=== PATIENT | male | born 1950 | race Caucasian/White ===

== ENCOUNTER → 2017-11-06 11:52 | Outpatient (CLI) | payer MEDICARE, OTHER ==
[2011-08-29 07:24] VITALS: BMI 25.1
[~2017-11-06 11:52] MED LIST: GABAPENTIN100 MG PO; PRAVACHOL20 MG PO
[2017-11-20 08:36] VITALS: BMI 24.4
== END | disposition home or self-care (01) ==
LOC: D.US 11:52
DX: M79.605 Pain in left leg (principal)

== ENCOUNTER → 2017-11-13 12:33 | Outpatient (CLI) | payer MEDICARE, OTHER ==
[2011-08-29 07:24] VITALS: BMI 25.1
== END | disposition home or self-care (01) ==
LOC: D.CT 12:33
DX: M79.605 Pain in left leg (principal)

== ENCOUNTER 2017-11-20 06:54 | Outpatient (CLI) | payer MEDICARE, OTHER ==
[~2017-11-20] VITALS: Ht 175.3 cm; Wt 75.0 kg
--- NOTE | ~2017-11-20 | HEMODYNAMI ---
PATIENT:TIM VILLATORO JR MEDICAL RECORD: [id number] : 52 LOCATION:[facility] ADMISSION DATE: 11/20/17 Generatedon:11/20/201711:09 Patient name: TIM VILLATORO Patient #: [id number] SSN: : 1950 Date of study: 11/20/2017 Page: Of Hemodynamic Procedure Report Patient Data Patient Demographics Procedure consent was obtained First Name: TIM Gender: Male Last Name: IRVING Suffix: [facility] Initial: S : 1950 Patient #: [id number] Age: 67 year(s) Race: Unknown Additional ID: [id number] Contact details [address]: [address] [place] [address] State: [place] City: [place] Zip code: [address] Past Medical History Allergies Allergen Reaction Date Comments Reported Demerol 11/20/2017 Admission Admission Data Admission Date: 11/20/2017 Admission Time: 6:54 Procedure Procedure Types Cath Procedure Peripheral Cath Diagnostic Procedure Cath Peripheral Abd/Extremity Extremities Bilat Lower Extremity Procedure Description Procedure Date Procedure Date: 11/20/2017 Procedure Start Time: 9:38 Procedure Staff Name Function Tremayne Harden MD Performing Physician Alyssa Rodriguez RT Monitor Napoleon Beckford RT Scrub Rosanna Alston RN Nurse Alyssa Rodriguez RT Procedures Analyst Procedure Data Cath Procedure Fluoroscopy Diagnostic fluoroscopy Total fluoroscopy Time: time: 10.9 min 10.9 min Diagnostic fluoroscopy Total fluoroscopy dose: 393 dose: 393 mGy mGy Contrast Material Contrast Material Type Amount (ml) Isovue 300 95 Entry Location Entry Primary Successful Side Size Upsize Upsize Entry Closure Succes sful Closure Location (Fr) 1 (Fr) 2 (Fr) Remarks Device Remarks Femoral Right 5 Fr artery Femoral Mynx artery Boat Dock Operator 6Fr/7Fr Diagnostic catheters Device Type Used For End Catheter Placement Merit ULTRA BOLUS FLUSH 5Fr 65CM catheter ([id number]) DIAGNOSTIC IMT 5Fr Catheter ([id number]) Procedure Medications Medication Administration Route Dosage Lidocaine 1% added to field 20 Oxygen NC 3 l/min Heparin Flush Bag 3 bags (1000units/500ml NS) Versed I.V. 1 mg Fentanyl I.V. 50 mcg Heparin Bolus I.V. 4000 units Versed I.V. 1 mg Fentanyl I.V. 50 mcg Heparin Bolus I.V. 1000 units Versed I.V. 1 mg Fentanyl I.V. 50 mcg Versed I.V. 1 mg Fentanyl I.V. 50 mcg Hemodynamics Rest Heart Rate: 63 (bpm) Snapshots Pre Cath Intra NCS Post Cath Vital Signs Time Heart Resp SPO2 etCO2 NIBP (mmHg) Rhythm Pain Sedation Rate (ipm) (%) (mmHg) Status Level (bpm) 9:11:28 63 13 100 29.3 145/81(122) NSR 0 (11) 10(A) , No pain 9:16:27 62 8 100 27.1 Measuring NSR 0 (11) 10(A) , No pain 9:16:29 61 9 100 27.1 155/83(101) NSR 0 (11) 10(A) , No pain 9:20:47 62 15 100 30.1 140/79(111) NSR 0 (11) 10(A) , No pain 9:25:01 64 17 99 17.3 126/77(104) NSR 0 (11) 10(A) , No pain 9:29:11 61 11 99 35.4 132/84(116) NSR 0 (11) 10(A) , No pain 9:33:27 60 15 99 29.3 128/78(103) NSR 0 (11) 10(A) , No pain 9:37:39 61 12 99 31.6 133/82(116) NSR 0 (11) 10(A) , No pain 9:41:53 61 15 98 29.3 137/82(118) NSR 0 (11) 10(A) , No pain 9:46:09 66 16 99 31.6 133/82(115) NSR 0 (11) 10(A) , No pain 9:50:21 65 8 99 30.1 135/84(106) NSR 0 (11) 10(A) , No pain 9:54:36 62 18 99 33.1 127/77(102) NSR 0 (11) 10(A) , No pain 9:58:48 62 19 99 28.6 124/79(98) NSR 0 (11) 10(A) , No pain 10:02:56 61 17 99 35.3 127/84(101) NSR 0 (11) 10(A) , No pain 10:07:08 60 16 99 32.3 120/78(102) NSR 0 (11) 10(A) , No pain 10:11:18 69 17 97 30.1 127/78(101) NSR 0 (11) 10(A) , No pain 10:15:30 76 19 96 28.6 119/77(89) NSR 0 (11) 10(A) , No pain 10:19:40 74 16 96 28.6 125/75(106) NSR 0 (11) 10(A) , No pain 10:23:49 74 14 97 32.3 127/78(91) NSR 0 (11) 10(A) , No pain 10:28:05 60 16 97 34.6 112/68(91) NSR 0 (11) 10(A) , No pain 10:32:13 58 16 97 34.6 116/72(84) NSR 0 (11) 10(A) , No pain 10:36:25 60 13 97 37.6 112/66(80) NSR 0 (11) 10(A) , No pain 10:40:35 55 14 96 35.3 106/62(83) NSR 0 (11) 10(A) , No pain 10:44:43 58 14 97 33.1 99/64(85) NSR 0 (11) 10(A) , No pain 10:48:47 54 16 97 33.1 105/67(85) NSR 0 (11) 10(A) , No pain 10:52:57 54 12 96 33.1 96/59(73) NSR 0 (11) 10(A) , No pain 10:57:00 55 11 96 34.6 94/62(75) NSR 0 (11) 10(A) , No pain 11:01:04 52 11 96 37.6 103/61(74) NSR 0 (11) 10(A) , No pain 11:05:10 59 16 33.8 112/71(95) NSR 0 (11) 10(A) , No pain 11:09:18 53 15 97 35.3 119/72(96) NSR 0 (11) 10(A) , No pain Medications Time Medication Route Dose Verified Delivered Reason Notes Effe ctiveness by by 9:10:41 Lidocaine 1% added 20ml Rosanna Tremayne for local to vial Gamaliel Hardne anesthetic field CARTER MAHAN 9:10:55 Oxygen NC 3 Rosanna Rosanna l/min Gamaliel Gamaliel MACHADO RN 9:11:30 Heparin Flush 3bags Rosanna Tremayne used for Bag Gamaliel Dereck procedure (1000units/500ml RN NS) 9:40:42 Versed I.V. 1 mg Tremayne Rosanna for Dereck Alston RN sedation 9:40:53 Fentanyl I.V. 50 Tremayne Rosanna for mcg Dereck Alston RN sedation 9:46:54 Heparin Bolus I.V. 4000 Tremayne Rosanna units Dereck Alston RN, MD 10:23:33 Versed I.V. 1 mg Tremayne Marte for Dereck Alston RN sedation 10:23:41 Fentanyl I.V. 50 Tremayne Rosanna for mcg Dereck Alston RN sedation 10:29:31 Heparin Bolus I.V. 1000 Tremayne Rosanna units Dereck Alston RN, MD 10:29:41 Versed I.V. 1 mg Tremayne Rosanna for Dereck Alston RN sedation 10:29:47 Fentanyl I.V. 50 Tremayne Rosanna for mcg Dereck Alston RN sedation 10:50:00 Versed I.V. 1 mg Tremayne Rosanna for Dereck Alston RN sedation 10:50:07 Fentanyl I.V. 50 Tremayne Rosanna for mcg Dereck Alston RN sedation Procedure Log Time Note 8:22:52 Use device set IR Diagnostic 8:47:00 Time tracking: Regular hours 8:47:09 Plan of Care:Hemodynamics will remain stable., Cardiac rhythm will remain stable., Comfort level will be maintained., Respiratory function will remain adequate., Patient/ family verbilizes understanding of procedure., Procedure tolerated without complication., Recovers from procedure without complications.. 8:47:17 Patient received from Outpatients to IR Alert and oriented. Tansferred to table in Supine position. 8:47:19 Correct patient and procedure confirmed by team. 8:47:21 Signed procedure consent form obtained from patient. 8:47:29 H&P Date Dictated: 11/20/2017 Within 30 days and on chart.. 8:47:32 - 8:47:36 Pre-procedure instructions explained to patient. 8:47:37 Pre-op teaching completed and patient verbalized understanding. 8:47:43 Family in waiting room. 8:47:46 Patient NPO since Midnight. 8:48:06 Patient allergic to Demerol 8:48:19 Is the patient allergic to Iodine/contrast media? No. 8:48:24 Is patient on blood thinner?No 8:48:27 Patient diabetic? No. 8:48:28 - 9:04:51 ----Pre-sedation anethsthesia assessment.---- 9:04:55 Previous problem with sedation/anesthesia? No ? 9:05:00 Snore? Yes 9:05:02 Sleep apnea? No 9:05:07 Deviated septum? No 9:05:14 Opens mouth fully? Yes 9:05:16 Sticks out tongue? Yes 9:05:20 Airway obstruction? No ? 9:05:25 Dentures? No ? 9:05:32 Pre procedure: right dorsailis pedis pulse Doppler 9:05:37 Pre procedure: left dorsailis pedis pulse Doppler 9:05:42 Pre procedure: right posterior tibial pulse Doppler 9:05:46 Pre procedure: left posterior tibial pulse Doppler 9:05:59 IV patent on arrival in left wrist with 0.9% NaCl at [facility]. 9:06:07 Right groin area was prepped with chlora-prep and draped in sterile fashion 9:06:12 - 9:06:22 Sterile Angiographic Pack opened to sterile field. 9:06:23 Bag Decanter (2002S) opened to sterile field. 9:06:23 ACIST Manifold (40641) opened to sterile field. 9:06:24 ACIST Hand Control (56185) opened to sterile field. 9:06:27 ACIST Syringe (36915) opened to sterile field. 9:06:29 Micropuncture VSI 4FR kit opened to sterile field. 9:06:30 BENTSON 145cm wire (H95146) opened to sterile field. 9:06:31 SHEATH 5FR Thendara (ZPQ587) opened to sterile field. 9:06:32 SHAHID 260 wire (E21633) opened to sterile field. 9:06:33 TUBING Contrast Injection High Pressure ([id number]) opened to sterile field. 9:08:25 SHEATH 7FR Destination (RSR04) opened to sterile field. 9:10:14 - 9:10:17 ECG and BP/O2 sat monitors applied to patient. 9:10:18 Baseline sample Acquired. 9:10:18 Vital chart was started 9:10:20 Full Disclosure recording started 9:10:21 - 9:10:41 Lidocaine 1% 20ml vial added to field was administered by Tremayne ya MD; for local anesthetic; 9:10:55 Oxygen 3 l/min NC was administered by Rosanna Alston RN; ; 9:11:30 Heparin Flush Bag (1000units/500ml NS) 3bags was administered by Tremayne Harden MD; used for procedure; 9:11:41 - 9:11:57 Alarms reviewed 9:12:08 Sharps counted by scrub and verified 9:28:02 CHOICE PT Extra Support J 300cm guide wire ([id number]) opened to steril e field. 9:28:28 A Merit ULTRA BOLUS FLUSH 5Fr 65CM catheter ([id number]) was advanced over the wire and used for . 9:34:55 Physician arrived 9:35:05 --------ALL STOP TIME OUT------ 9:35:06 Final Timeout: patient, procedure, and site verified with staff and physician. All members of the team are in agreement. 9:35:21 Sedation plan: IV Moderate Sedation Medication:Versed, Fentanyl 9:37:44 Procedure started. 9:38:01 Local anesthetic to right femoral artery with Lidocaine 1% by Tremayne Harden MD.INITIAL ACCESS ONLY 9:38:12 Arterial access obtained using ultrasound guidance. 9:40:42 Versed 1 mg I.V. was administered by Rosanna Alston RN; for sedation; 9:40:53 Fentanyl 50 mcg I.V. was administered by Rosanna Alston RN; for sedation ; 9:42:40 A 5 Fr sheath was inserted into the Right Femoral artery 9:44:14 ROADRUNNER .035 260 glide wire (F90474) opened to sterile field. 9:44:15 CXI SUPPORT .035 135 CM STR catheter (P26514) opened to sterile field. 9:44:28 A DIAGNOSTIC IMT 5Fr Catheter ([id number]) was advanced over the wire an d used for . 9:46:54 Heparin Bolus 4000 units I.V. was administered by Rosanna Gamaliel RN; ; 9:46:58 Angiography was performed. 9:54:45 SPIDER EMBOLIC PROTECTION DEVICE 5MM ([id number]) opened to sterile field. 10:07:49 DIAMONDBACK Viperslide Lubricant (VPRSLD2) opened to sterile field. 10:08:27 JETSTREAM 2.4/3.4mm Atherectomy catheter ([id number]) opened to sterile field. 10:23:33 Versed 1 mg I.V. was administered by Rosanna Alston RN; for sedation; 10:23:41 Fentanyl 50 mcg I.V. was administered by Rosanna Alston RN; for sedation ; 10:26:21 Inflation number: 1 A IN.PACT Admiral 6 x 150 x 130 DCB balloon ([id number]) was prepped and advanced across the Undefined1, then inflated. 10:29:31 Heparin Bolus 1000 units I.V. was administered by Rosanna Alston RN; ; 10::41 Versed 1 mg I.V. was administered by Rosanna Alston RN; for sedation; 10:29:47 Fentanyl 50 mcg I.V. was administered by Rosanna Alston RN; for sedation ; 10:31:28 Inflation number: 2 A IN.PACT Admiral 6 x 150 x 130 DCB balloon ([id number]) was prepped and advanced across the Undefined1, then inflated 10:32:01 [place] 7FR sheath opened to sterile field. 10:40:30 Inflation number: 1 A POWERFLEX PRO 7.0 x 40 x 135cm balloon ([id number]) was prepped and advanced across the Undefined2, then inflated 10:43:54 a [id number] INNOVA STENT WAS PLACED IN THE LT SFA 10:50:00 Versed 1 mg I.V. was administered by Rosanna Alston RN; for sedation; 10:50:07 Fentanyl 50 mcg I.V. was administered by Rosanna Alston RN; for sedation ; 10:54:28 MYNX OUTPATIENT PHARMACY MANAGER 6FR/7FR (WA1088) opened to sterile field. 10:55:11 A sheath was inserted into the Femoral artery 10:55:11 Sheath removed intact; hemostasis achieved with Mynx Boat Dock Operator 6Fr/7Fr to th e Femoral artery. 10:58:44 Procedure ended.(Physican Out) 10:59:09 Fluoroscopy time 10.90 minutes. 10:59:25 Fluoroscopy dose: 393 mGy 10:59:25 Flurop Dose total: 393 10:59:31 Contrast amount:Isovue 300 95ml. 10:59:32 Sharps counted by scrub and verified 11:00:16 Procedure and supply charges have been captured, reviewed, submitted an d are correct. 11:09:50 Vital chart was stopped Intervention Summary Intervention Notes Time ActionType Lesion and Equipment Used Action# Pressure Duration Attributes 10:26:21 Inflate Undefined1 IN.PACT 1 0 00:00 balloon Admiral 6 x 150 x 130 DCB balloon ([id number]) 10:31:28 Inflate Undefined1 IN.PACT 2 0 00:00 balloon Admiral 6 x 150 x 130 DCB balloon ([id number]) 10:40:30 Inflate Undefined2 POWERFLEX PRO 1 0 00:00 balloon 7.0 x 40 x 135cm balloon ([id number]) Device Usage Item Name Manufacture Quantity Catalog Number [facility] Minimal Lot# / Charge Number Stock Stock Serial# Code Sterile Cardinal 1 [id number] 034013 24889 5 5 Angiographic Health Pack Bag Decanter Microtek 1 2001S 253275 04277 45632 9 5 () Medical Inc. ACIST Manifold Acist Medical 1 51269 928158 601489 10044 5 5 (60538) Systems Inc ACIST Hand Acist Medical 1 14079 097145 220072 88175 7 5 Control Systems Inc (95923) ACIST Syringe Acist Medical 1 21065 921857 258064 42749 5 20 (50029) Systems Inc Micropuncture VSI VASCULAR 1 7266V 071021 15361 6 5 VSI 4FR kit SOLUTIONS BENTSON 145cm [employer] 1 J08798 035848 44009 0 5 [id number] wire (E32100) SHEATH 5FR Terumo 1 RMN571 404365 385783 60894 3 40 Thendara (BNS817) SHAHID 260 wire [facility] 1 B53900 286362 48678 8 5 9697927 (J92539) TUBING [facility] 1 NEQ420O 101882 584960 52171 4 5 Contrast Injection High Pressure (BAV846D) SHEATH 7FR Terumo 1 RSR04 885370 435858 38020 5 5 Destination (RSR04) CHOICE PT [place] 1 [id number] 665724 636871 98904 9 5 Extra Support Scientific J 300cm guide wire ([id number]) Merit ULTRA [employer] 1 [id number] 816185 02517 8 5 BOLUS FLUSH 5Fr 65CM catheter ([id number]) ROADRUNNER [employer] 1 N88479 166161 480726 27805 2 5 9417119 .035 260 glide wire (I41527) CXI SUPPORT PingTune [facility] 1 I66861 457955 545818 30017 9 5 6433523 .035 135 CM STR catheter (D71185) DIAGNOSTIC IMT [place] 1 [id number] 820851 766900 98479 5 15625470 5Fr Catheter [employer] ([id number]) SPIDER EMBOLIC Medtronic 1 UFI6-IA-576-320 640489 84539 2 5 PROTECTION DEVICE 5MM ([id number]) DIAMONDBACK Cardiovascular 1 VPR-SLD2 807402 63046 6 5 Viperslide systems Lubricant (VPRSLD2) JETSTREAM [place] 1 DU84668 321175 50184 6 5 [id number] 2.4/3.4mm Scientific Atherectomy catheter (KW83985) IN.PACT Medtronic 2 [id number] 095978 1765098 49726 0 5 [id number] Admiral 6 x [id number] 150 x 130 DCB balloon ([id number]) [place] 7FR [place] 1 966500 080190 09382 1 5 7243631 sheath POWERFLEX PRO Cardinal 1 [id number] 363331 698904 67200 6 5 7.0 x 40 x Health 135cm balloon ([id number]) MYNX OUTPATIENT PHARMACY MANAGER Access Closure 1 SS4590 568022 43795 4 5 6FR/7FR (PO4129) Signature Audit [place] Stage Time Signature Unsigned Intra-Procedure 11/20/2017 Alyssa Rodriguez 11:09:47 AM RT(R) Signatures Monitor : Alyssa Rodriguez RT Signature : Date : Time : [facility] [address] [place] [address]
[2017-11-20 07:51] LABS: BASOPHILS 0.2 % (0-2); EOSINOPHILS 2.9 % (0-7); HEMATOCRIT 44.4 % (42.0-54.0); IMMATURE GRANULOCYTES 0.1 % (0-5); MCH 33.8 pg (26.0-34.0); MCHC 33.8 g/dL (31.0-37.0); MEAN PLATELET VOLUME 11.6 fL (7.4-10.4); MONOCYTES 13.5 % (2-11); NEUTROPHILS 51.3 % (40-80); PLATELET COUNT 214 10x3/uL (130-400); RBC 4.44 10x6/uL (4.20-6.10); RDW 13.5 % (11.5-14.5); WBC 8.6 10x3/uL (4.8-10.8)
[2017-11-20 07:58] LABS: CALC OSMOLALITY 281 mosm/kg (275-300); CALCIUM 9.1 mg/dL (8.5-10.1); CARBON DIOXIDE 27.4 mmol/L (21.0-32.0); CHLORIDE - SERUM 105 mmol/L (98-107); GLUCOSE 98 mg/dL (74-106); POTASSIUM - SERUM 4.1 mmol/L (3.5-5.1); SODIUM 141 mmol/L (136-145); UREA NITROGEN 14 mg/dL (7-18); eGFR NON AFRICAN AMERICAN 79 mL/min (90-120)
[2017-11-20 08:08] LABS: APTT 29.1 SECONDS (22.8-39.4); INR 0.96 (0.85-1.17); PROTIME 12.4 SECONDS (11.6-15.0)
[2017-11-20] MEDS ORDERED: GABAPENTIN100 MG PO (08:20)
[2017-11-20] MEDS ORDERED: PRAVACHOL20 MG PO (08:21)
[2017-11-20 08:36] VITALS: Ht 175.3 cm; Wt 75.0 kg
== END 2017-11-20 15:30 | disposition home or self-care (01) ==
LOC: D.OPS 06:54 → D.SP 09:00 → D.OPS 09:00
PROVIDERS: Radiology Diagnostic Radiology
DX: I70.212 Atherosclerosis of native arteries of extremities with intermittent claudication, left leg (principal); I70.222 Atherosclerosis of native arteries of extremities with rest pain, left leg; Z01.812 Encounter for preprocedural laboratory examination

== ENCOUNTER → 2019-12-21 14:14 | Outpatient (CLI) | payer MEDICARE, OTHER ==
[2017-11-20 08:36] VITALS: BMI 24.4
--- NOTE | 2019-12-21 15:13 | NUR ---
TIME OUT PERFORMED @[address] OAKLEY AND TRU HONEYCUTT RT(R). PT , , AND PROCEDURE VERIFIED.
== END | disposition home or self-care (01) ==
LOC: D.RAD 14:14
PROVIDERS: ATTEND Orthopaedic Surgery
DX: S43.432A Superior glenoid labrum lesion of left shoulder, initial encounter (principal); X58.XXXA Exposure to other specified factors, initial encounter

== ENCOUNTER → 2020-02-24 07:28 | Day surgery (SDC) | payer MEDICARE, OTHER ==
[~2020-02-24] VITALS: Ht 175.3 cm; Wt 72.6 kg
[~2020-02-24 07:28] MED LIST changes: +ANORO ELLIPTA1 EACH INH; +BAYER CHEWABLE81 MG PO; +CO Q-10100 MG PO; +COREG 3.1253.125 MG PO; +LIPITOR80 MG PO; +PERCOCET 5-3251 TAB PO; +VITAMIN B-122500 MCG PO; +ZETIA10 MG PO
[2020-02-24 07:49] LABS: HEMATOCRIT 48.2 % (42.0-54.0); HEMOGLOBIN 15.9 g/dL (13.5-17.5); MEAN PLATELET VOLUME 10.8 fL (7.4-10.4); RBC 4.68 10x6/uL (4.20-6.10); RDW 14.2 % (11.5-14.5); WBC 8.2 10x3/uL (4.8-10.8)
[2020-02-24 08:16] VITALS: BP 135/79; Ht 175.3 cm; Wt 72.6 kg
--- NOTE | 2020-02-24 11:05 | NUR ---
1047 PATIENT ARRIVED RESPONSIVE. IV DISCONTINUED PRIOR TO ARRIVAL TO PACU. ATTEMPTED TO RESITE IV X2 WITHOUT SUCCESS. Bridgette BELLE CRNA GAVE ORDER OK NOT TO RESTART IV IN PACU
--- NOTE | 2020-02-26 17:23 | OP ---
PATIENT NAME: TIM MONTGOMERY JR MEDICAL RECORD: [id number] :52 LOCATION:[facility] ADMISSION DATE: SURGEON: BILLY LOJA DO DATE OF OPERATION: 02/24/2020 PROCEDURE PERFORMED: Left shoulder arthroscopy with rotator cuff repair with Regeneten, subacromial decompression, distal clavicle excision, and bicep tenodesis. PREOPERATIVE DIAGNOSES: Left shoulder rotator cuff tear, SLAP tear, AC joint arthritis, and subacromial impingement. POSTOPERATIVE DIAGNOSES: Left shoulder rotator cuff tear, SLAP tear, AC joint arthritis, and subacromial impingement. INDICATIONS: Mr. Montgomery is a 69-year-old male who has been dealing with left shoulder pain for quite some time. He had an MRI, which showed the above findings. I informed him of the risks of the procedure including infection, bleeding, damage to nerves and vessels, need for further surgery, continued pain, frozen shoulder and need for further surgery, and he signed the consent. SURGEON: Billy Loja DO DESCRIPTION OF PROCEDURE: The patient was taken to operative suite, laid in the right lateral decubitus position with the left shoulder abducted in a block by anesthesia in the preoperative area, given 900 mg clindamycin. He was then sedated and LMA was placed. The left shoulder was then prepped and draped in sterile fashion. Timeout was performed, everyone was in agreement with the correct side, site, patient and procedure. We then began by inflating the joint with 60 mL of normal saline through the posterior portal with an 18-gauge spinal needle. It did leak out indicating there was a tear in the rotator cuff. Needle was then taken out. An 11 blade scalpel was used to establish posterior portal and trocar was then entered into the shoulder joint. The camera was then entered, noting there was a full thickness rotator cuff tear on the supraspinatus right at the anterior portion of it. The long head of the biceps tendon was frayed as well as he had a SLAP tear. Subscapularis tenon and infraspinatus tendon looked good. There were no tears seen in them. There were no cartilage damage in the inferior gutter as well. The anterior portal was then established with an 18-gauge spinal needle and 11-blade scalpel. A burner was then brought into the bicep tenotomy at that time. I then went to the subacromial space and did a subacromial decompression removing quite a bit of bursa and then a distal clavicle excision opening up the AC joint, approximately 7 mm. We had a large spur also on the distal lateral acromion. This was taken off. Once that was done, the wound VAC into the shoulder joint marking the articular side of the tear with an 18-gauge spinal needle. The lateral portal had been established prior to this and then I went into the subacromial space. An 18-gauge spinal needle and 11 blade scalpel was worked through in the subacromial space. The 18-gauge spinal needle was brought through and had marked the tear. I then extended the incision with a 15 blade and with careful dissection made down to the rotator cuff tear. The additional bursa was taken off. I then put a medial row anchor and after decorticating the humerus and the 4 sutures through the rotator cuff tendon and then put into a lateral row then put the Regeneten patch on top of this and stapled into place, medial and lateral. I then addressed the bicep tenodesis, made incision in the anterior humerus. Careful dissection made down to the long head of the biceps tendon. OPERATIVE REPORT [id number] TIM MONTGOMERY JR It was pulled out through the incision. A single unicortical hole was placed in the humerus and the 2.9 Juggerloc anchor was put in and the tendon was brought through the loop and this was cinched down. Next, loop was cut and then I used a free needle to suture back through the tendon and tied this down. Excess tendon and suture were then cut. We then irrigated that site and the rotator cuff repair site. These were closed by Jerson Fernandez, certified surgical cutter first and Jan Munroe, surgical cutter first student closing with 2-0 Vicryl in inverted interrupted fashion, 4-0 Monocryl in the skin and the anterior and posterior portals were closed with 4-0 Monocryl in inverted interrupted fashion. Dermabond glue was placed on all of them. Telfa and Tegaderm to all the incisions. He was awakened and taken to recovery in stable condition and placed in a sling. BLOOD LOSS: Minimal. COMPLICATIONS: None. TRANSINT:[id number] Voice Confirmation ID: [id number] DOCUMENT ID: [id number] BILLY LOJA DO at 1723 CC: [id number] DICTATION DATE: 02/24/20 1034 EGG PROCESSOR: 02/24/201940 [facility] [place] 02/24/20 [place] [id number] [place] [address]
== END | disposition home or self-care (01) ==
LOC: D.OPS 07:28 → D.PAN 09:40 → D.OPS 10:15 → D.PAN 10:15
PROVIDERS: Anesthesiology; ATTEND Orthopaedic Surgery
DX: M75.102 Unspecified rotator cuff tear or rupture of left shoulder, not specified as traumatic (principal); S43.432A Superior glenoid labrum lesion of left shoulder, initial encounter; M19.012 Primary osteoarthritis, left shoulder; M25.812 Other specified joint disorders, left shoulder; X58.XXXA Exposure to other specified factors, initial encounter; J44.9 Chronic obstructive pulmonary disease, unspecified; F17.200 Nicotine dependence, unspecified, uncomplicated; I25.2 Old myocardial infarction